=== PATIENT | female | born 1990 | race Caucasian/White ===

== ENCOUNTER 2016-09-29 17:33 | Emergency (ER) | payer OTHER ==
[~2016-09-29] VITALS: Ht 157.5 cm; Wt 99.0 kg
[~2016-09-29 17:33] MED LIST: BIRTH CONTROL PO; ZOFR4TAB3 SL
[2016-09-29 17:50] VITALS: BP 134/82; PULSE 86; RESP 16; TEMP 98.3; O2SAT 99
[2016-09-29] MEDS ORDERED: BIRTH CONTROL PILL (17:54)
[2016-09-29] MEDS ORDERED: birth control (19:00)
--- NOTE | 2016-09-29 19:11 | PD ---
HPI . Sore throat Chief Complaint: ENT Complaint Time Seen by Provider: 19:08 Travel History International Travel<30 days: No Contact w/Intl Traveler<30days: No Traveled to known affect area: No History of Present Illness HPI 26-year-old female with past history significant for recurrent strep throat here with complaints of strep throat again. Patient says she is almost she has strep throat. She is complaining of a sore throat. She admits to seeing white spots in the back of her throat. She denies any fever chills but she has no other symptoms. [facility] Past Medical History Medical History: Denies Significant Hx Hx Anticoagulant Therapy: No Diabetes: No Diminished Hearing: No Headaches: Yes Tetanus Vaccination: Unknown ?: Not Past Surgical History Oral Surgery: Yes (WISDOM TEETH) Social History Alcohol Use: Yes (SOCIAL) Tobacco Use: No Substance Use: No Allergies-Medications (Allergen,Severity, Reaction): Coded Allergies: Aspirin (Verified Allergy, Unknown, TOLD BY MOM, 09/29/16) Reported Meds & Prescriptions Reported Meds & Active Scripts Active Reported [ control] Review of Systems General / Constitutional: No: Fever Eyes: No: Visual changes HENT: Positive: Sore Throat, No: Headaches Cardiovascular: No: Chest Pain or Discomfort Respiratory: No: Shortness of Breath Gastrointestinal: No: Abdominal Pain Genitourinary: No: Dysuria Musculoskeletal: No: Pain Skin: No Rash Neurologic: No: Weakness Psychiatric: No: Depression Endocrine: No: Polydipsia Hematologic/Lymphatic: No: Easy Bruising Physical Exam Narrative GENERAL: AAO x 3, no acute distress, Well-nourished, well-developed patient. SKIN: Warm and dry. No visible rashes or bruising. HEAD: Normocephalic and atraumatic. EYES: No scleral icterus. No injection or drainage. ENT: No nasal drainage noted. Mucous membranes pink. Airway patent. Moderate posterior pharynx erythema, exudates and slight edema. No airway obstruction. NECK: Supple, trachea midline. No JVD. Chain lymphadenopathy. CARDIOVASCULAR: Regular rate and rhythm without murmurs, gallops, or rubs. RESPIRATORY: Breath sounds equal bilaterally. No accessory muscle use. No rhonchi or rales. GASTROINTESTINAL: Abdomen soft, non-tender, nondistended. EXTREMITIES: No cyanosis or edema. BACK: Nontender without obvious deformity. No CVA tenderness. PSYCH: AAO x 3, normal affect. Data Data Last Documented VS Vital Signs Date Time Temp Pulse Resp B/P Pulse Ox O2 Delivery O2 Flow Rate FiO2 09/29/16 17:50 98.3 86 16 134/82 99 MDM Medical Decision Making Medical Screen Exam Complete: Yes Emergency Medical Condition: Yes Medical Record Reviewed: Yes Differential Diagnosis acute pharyngitis, less likely sinusitis, less likely PNA Narrative Course 26-year-old female with past history significant for recurrent strep throat here with complaints of strep throat again. Patient says she is almost she has strep throat. She is complaining of a sore throat. She admits to seeing white spots in the back of her throat. She denies any fever chills but she has no other symptoms. Patient seen and examined. She does appear to have a strep infection. I will go ahead and bypass testing as this is pretty apparent. I will treat with amoxicillin. She has a history of recurrent infection, I recommend follow-up with her primary care provider for ENT referral for removal. Patient verbalized understanding of instructions, questions were answered, and thanked me for their care. I advised them if their condition worsens, please return to the nearest emergency room for further care. Diagnosis Primary Impression: Acute pharyngitis Qualified Code: J02.9 - Acute pharyngitis, unspecified etiology Patient Instructions: General Instructions, Pharyngitis (ED) Additional Instructions: Take medications as prescribed. Try salt water gargles. Do not share utensils, toothbrush, etc. If you develop difficulty breathing, please go to the nearest emergency room. Follow up with her primary care provider. Use ibuprofen and Tylenol as needed for pain and fever. Med/Other Pt SpecificInfo: Prescription(s) given Scripts Ibuprofen 800 Mg [id number] Mg PO TID #21 TAB Prov:Smita Cook 09/29/16 Amoxicillin 500 Mg [id number] Mg PO BID 10 Days Ref 0 Prov:Smita Cook 09/29/16 Disposition: 01 DISCHARGE HOME Condition: Stable Mary Bradley Sep 29, 2016 19:11
[2016-09-29] MEDS ORDERED: AMOX500C PO (19:12)
[2016-09-29] MEDS ORDERED: IBUP800T23 PO (19:12)
== END 2016-09-29 19:15 | disposition home or self-care (01) ==
LOC: PHEFT 17:33
DX: J02.9 Acute pharyngitis, unspecified (principal)
CPT/HCPCS: 99283

== ENCOUNTER 2017-06-12 14:29 | Emergency (ER) | payer OTHER ==
[~2017-06-12] VITALS: Ht 157.5 cm; Wt 104.3 kg
[~2017-06-12 14:29] MED LIST changes: +AMOX500C PO; -BIRTH CONTROL PO; +IBUP1TAB7 PO; -ZOFR4TAB3 SL; +birth control
[2017-06-12 14:46] VITALS: BP 140/82; PULSE 83; RESP 16; TEMP 98.4; O2SAT 99
[2017-06-12] MEDS ORDERED: BACT800T5 PO (15:46)
--- NOTE | 2017-06-12 15:46 | PD ---
HPI Chief Complaint: Skin Problem Time Seen by Provider: 15:27 Travel History International Travel<30 days: No Contact w/Intl Traveler<30days: No Traveled to known affect area: No History of Present Illness HPI 27-year-old female here for evaluation of draining abscess to right thigh 5 days. The area began to drain spontaneously yesterday. She denies fever or chills. She has pain at the site which is throbbing and constant. Symptom severity is moderate. No alleviating factors. PFSH Past Medical History Medical History: Denies Significant Hx Hx Anticoagulant Therapy: No Diabetes: No Diminished Hearing: No Headaches: Yes Tetanus Vaccination: > 5 Years Influenza Vaccination: No ?: Not LMP: 05/16/17 Past Surgical History Oral Surgery: Yes (WISDOM TEETH) Social History Alcohol Use: Yes (SOCIAL) Tobacco Use: No Substance Use: No Allergies-Medications (Allergen,Severity, Reaction): Coded Allergies: aspirin (Unverified Allergy, Unknown, TOLD BY MOM, 06/12/17) Reported Meds & Prescriptions Reported Meds & Active Scripts Active Reported [ control] Review of Systems Except as stated in HPI: all other systems reviewed are Neg General / Constitutional: No: Fever Physical Exam Narrative GENERAL: Alert well-appearing female no acute distress. SKIN: Warm and dry. Right thigh medial aspects there is a less than 1 cm erythematous abscess with central opening small amount of drainage. There is no drainage or fluctuance. HEAD: Normocephalic. EYES: No scleral icterus. No injection or drainage. NECK: Supple, trachea midline. MUSCULOSKELETAL: No cyanosis, or edema. BACK: Nontender without obvious deformity. No CVA tenderness. Data Data Last Documented VS Vital Signs Date Time Temp Pulse Resp B/P (MAP) Pulse Ox O2 Delivery O2 Flow Rate FiO2 06/12/17 14:46 98.4 83 16 140/82 (101) 99 MDM Medical Decision Making Medical Screen Exam Complete: Yes Emergency Medical Condition: Yes Differential Diagnosis Abscess, cellulitis, lymphangitis Narrative Course 27-year-old female here with abscess to the right medial thigh which is draining. She has no fever chills. The area is not indurated. Patient put on Bactrim Diagnosis Primary Impression: Abscess Referrals: Primary Care Physician Additional Instructions: Apply warm compresses to the area. Keep the area covered until draining stops Take antibiotics as prescribed. Scripts Sulfamethoxazole-Trimethoprim (Bactrim DS) 800-160 Mg Tab 1 TAB PO BID for Infection, #20 TAB 0 Refills Prov: Elisabeth Nunez 06/12/17 Disposition: 01 DISCHARGE HOME Condition: Stable Elisabeth Nunze Jun 12, 2017 15:46
== END 2017-06-12 15:52 | disposition home or self-care (01) ==
LOC: PHEFT 14:29
DX: L02.415 Cutaneous abscess of right lower limb (principal); Z72.89 Other problems related to lifestyle
CPT/HCPCS: 99283

== ENCOUNTER 2017-07-21 19:02 | Emergency (ER) | payer OTHER ==
[~2017-07-21] VITALS: Ht 157.5 cm; Wt 103.9 kg
[~2017-07-21 19:02] MED LIST changes: -AMOX500C PO; +BACT800T5 PO; -IBUP1TAB7 PO
[2017-07-21 19:12] VITALS: BP 146/89; PULSE 107; RESP 20; TEMP 99.9; O2SAT 95
[2017-07-21 20:20] VITALS: BP 142/69; PULSE 96; RESP 18; O2SAT 97
--- NOTE | 2017-07-21 20:43 | PD ---
HPI Chief Complaint: Cold / Flu Symptoms Time Seen by Provider: 20:35 Travel History International Travel<30 days: No Contact w/Intl Traveler<30days: No Traveled to known affect area: No History of Present Illness HPI The patient is a 27-year-old female that complains of a cough, nausea, vomiting and diarrhea for 1 day. She denies any shortness of breath. She thinks he probably has a low-grade fever at home. She denies any possibility of . PFSH Past Medical History Hx Anticoagulant Therapy: No Diabetes: No Diminished Hearing: No Headaches: Yes Migraines: Yes Influenza Vaccination: No ?: Not LMP: 07/10/17 Past Surgical History Surgical History: No Previous Surgery Oral Surgery: Yes (WISDOM TEETH) Social History Alcohol Use: Yes (SOCIAL) Tobacco Use: No Substance Use: No Allergies-Medications (Allergen,Severity, Reaction): Coded Allergies: aspirin (Verified Allergy, Unknown, TOLD BY MOM, 07/21/17) Reported Meds & Prescriptions Reported Meds & Active Scripts Active Reported [ control] Review of Systems Except as stated in HPI: all other systems reviewed are Neg Physical Exam Narrative GENERAL: The patient is alert, oriented 3 in no respirator distress. Her vital signs show temperature 99.9 with heart rate of 107 but are otherwise normal. SKIN: Focused skin assessment warm/dry. There is a slight skin rash on the right anterior lower abdominal wall apparently from scratching a pimple. It is about 3 cm in diameter, mild cellulitis. HEAD: Atraumatic. Normocephalic. EYES: Pupils equal and round. No scleral icterus. No injection or drainage. ENT: No nasal bleeding or discharge. Mucous membranes pink and moist. The throat is slightly red without exudate or abscess. NECK: Trachea midline. No JVD. There is no meningismus present. CARDIOVASCULAR: Regular rate and rhythm. No murmur appreciated. RESPIRATORY: No accessory muscle use. Clear to auscultation. Breath sounds equal bilaterally. GASTROINTESTINAL: Abdomen soft, non-tender, nondistended. Hepatic and splenic margins not palpable. No guarding or rebound is present. MUSCULOSKELETAL: No obvious deformities. No clubbing. No cyanosis. No edema. NEUROLOGICAL: Awake and alert. No obvious cranial nerve deficits. Motor grossly within normal limits. Normal speech. PSYCHIATRIC: Appropriate mood and affect; insight and judgment normal. Data Data Last Documented VS Vital Signs Date Time Temp Pulse Resp B/P (MAP) Pulse Ox O2 Delivery O2 Flow Rate FiO2 07/21/17 21:16 88 18 141/80 (100) 97 Room Air 07/21/17 19:12 99.9 Orders Orders Sepsis Workup Initiated (07/21/17 ) Complete Blood Count With Diff (07/21/17 20:44) Comprehensive Metabolic Panel (07/21/17 20:44) Lactic Acid Sepsis Protocol (07/21/17 20:44) Lipase (07/21/17 20:44) Urinalysis - C+S If Indicated (07/21/17 20:44) Blood Culture (07/21/17 20:44) Chest, Pa & Lat (07/21/17 20:44) Ecg Monitoring (07/21/17 20:44) Iv Access Insert/Monitor (07/21/17 20:44) Oximetry (07/21/17 20:44) Oxygen Administration (07/21/17 20:44) Ondansetron Inj (Zofran Inj) (07/21/17 21:00) Sodium Chlor 0.9% 1000 Ml Inj (Ns 1000 M (07/21/17 21:00) Ed Urine Pregnancytest Poc (07/21/17 20:47) Influenzae A/B Antigen (07/21/17 21:00) Labs Laboratory Tests Test 07/21/17 20:45 07/21/17 21:00 White Blood Count 3.8 TH/MM3 Red Blood Count 4.51 MIL/MM3 Hemoglobin 13.4 GM/DL Hematocrit 39.9 % Mean Corpuscular Volume 88.3 FL Mean Corpuscular Hemoglobin 29.7 PG Mean Corpuscular Hemoglobin Concent 33.6 % Red Cell Distribution Width 12.4 % Platelet Count 189 TH/MM3 Mean Platelet Volume 8.9 FL Neutrophils (%) (Auto) 68.4 % Lymphocytes (%) (Auto) 20.0 % Monocytes (%) (Auto) 10.3 % Eosinophils (%) (Auto) 0.6 % Basophils (%) (Auto) 0.7 % Neutrophils # (Auto) 2.6 TH/MM3 Lymphocytes # (Auto) 0.8 TH/MM3 Monocytes # (Auto) 0.4 TH/MM3 Eosinophils # (Auto) 0.0 TH/MM3 Basophils # (Auto) 0.0 TH/MM3 CBC Comment DIFF FINAL Differential Comment Urine Color YELLOW Urine Turbidity HAZY Urine pH 8.5 Urine Specific [place] 1.025 Urine Protein TRACE mg/dL Urine Glucose (UA) NEG mg/dL Urine Ketones NEG mg/dL Urine Occult Blood NEG Urine Nitrite NEG Urine Bilirubin NEG Urine Leukocyte Esterase NEG Urine WBC 3-5 /hpf Urine Squamous Epithelial Cells > 8 /hpf Urine Amorphous Sediment FEW Urine Bacteria FEW /hpf Urine Mucus MOD /lpf Microscopic Urinalysis Comment CATH-CULT NOT IND Blood Urea Nitrogen 10 MG/DL Creatinine 0.76 MG/DL Random Glucose 96 MG/DL Total Protein 7.6 GM/DL Albumin 3.6 GM/DL Calcium Level 8.5 MG/DL Alkaline Phosphatase 68 U/L Aspartate Amino Transf (AST/SGOT) 19 U/L Alanine Aminotransferase (ALT/SGPT) 27 U/L Total Bilirubin 0.1 MG/DL Sodium Level 136 MEQ/L Potassium Level 3.6 MEQ/L Chloride Level 103 MEQ/L Carbon Dioxide Level 24.7 MEQ/L Anion Gap 8 MEQ/L Estimat Glomerular Filtration Rate 92 ML/MIN Lipase 155 U/L Lactic Acid Level 0.7 mmol/L [facility] Medical Decision Making Medical Screen Exam Complete: Yes Emergency Medical Condition: Yes Medical Record Reviewed: Yes Interpretation(s) The CBC is normal except for a slightly low white count of 3800. The influenza A/B antigen is negative for flu a and flu B antigen. The urinalysis shows hazy turbidity, 3-5 white cells and few bacteria but is otherwise normal and culture is not indicated. The complete metabolic profile is normal and the lipase is normal. The chest x-ray is normal. Differential Diagnosis Flu syndrome, viral syndrome, viral gastroenteritis, pneumonia-unlikely, bronchitis, hypoxemia, electrolyte disorder Narrative Course The patient has a viral syndrome. She will get Motrin, Compazine, increase her liquid intake and a 5 day work excuse. She needs to follow-up with her primary care physician this week or early next week. Diagnosis Primary Impression: Viral syndrome Additional Instructions: Rest, increase liquids, 5 day work excuse, Compazine for nausea and Motrin 600 mg 3 times daily when you do for a virus. We have no antibiotic for this. Follow-up with your primary care physician this week or early next week. Med/Other Pt SpecificInfo: Prescription(s) given Scripts Ibuprofen (Ibuprofen) 600 Mg Tab 600 MG PO TID, #30 TAB 0 Refills Prov: Maurisio Little MD 07/21/17 Prochlorperazine Maleate (Prochlorperazine Maleate) 10 Mg Tab 10 MG PO Q6H Y for NAUSEA OR VOMITING, #28 TAB 0 Refills Prov: Maurisio Little MD 07/21/17 Disposition: 01 DISCHARGE HOME Condition: Stable Maurisio Little MD Jul 21, 2017 20:43
[2017-07-21] MEDS ORDERED: SODIUM CHLOR 0.9% 1000 ML INJ 1,000 ML IV SCH (21:00)
[2017-07-21] MEDS ORDERED: ONDANSETRON HCL 4 MG/2 ML VIAL IV ONE (21:00)
[2017-07-21 21:07] LABS: AUTOMATED NEUTROPHIL # 2.6 TH/MM3 (1.8-7.7); BASOPHIL % 0.7 % (0.0-2.0); EOSINOPHIL % 0.6 % (0.0-4.0); HEMATOCRIT 39.9 % (35.0-46.0); HEMOGLOBIN 13.4 GM/DL (11.6-15.3); LYMPHOCYTE # 0.8 TH/MM3 (1.0-4.8); MEAN CELL VOLUME 88.3 FL (80.0-100.0); MEAN CORPUSCULAR HEMOGLOBIN 29.7 PG (27.0-34.0); MEAN CORPUSCULAR HGB CONC 33.6 % (32.0-36.0); MEAN PLATELET VOLUME 8.9 FL (7.0-11.0); MONO % 10.3 % (0.0-8.0); MONOCYTE # 0.4 TH/MM3 (0-0.9); NEUT % 68.4 % (16.0-70.0); PLATELET COUNT 189 TH/MM3 (150-450); RED BLOOD COUNT 4.51 MIL/MM3 (4.00-5.30); RED CELL DISTRIBUTION WIDTH 12.4 % (11.6-17.2); WHITE BLOOD COUNT 3.8 TH/MM3 (4.0-11.0)
[2017-07-21 21:08] LABS: BILIRUBIN, URINE NEG (NEG); BLOOD, URINE NEG (NEG); GLUCOSE,URINE NEG (NEG); KETONE, URINE NEG (NEG); NITRITE,URINE NEG (NEG); PH, URINE 8.5 (5.0-8.5); URINE LEUKOCYTE ESTERASE NEG (NEG)
--- NOTE | 2017-07-21 21:08 | RADRPT ---
EXAM DATE/TIME: 07/21/2017 20:59 [place] COMPARISON: No previous studies available for comparison. INDICATIONS : Nausea, vomiting, diarrhea, cough. MEDICAL HISTORY : None. SURGICAL HISTORY : None. ENCOUNTER: Initial ACUITY: 1 day PAIN SCORE: 0/10 LOCATION: chest FINDINGS: PA and lateral views of the chest demonstrate the lungs to be symmetrically aerated without evidence of mass, infiltrate or effusion. The cardiomediastinal contours are unremarkable. Osseous structure s are intact. CONCLUSION: Normal examination. Dick David Jr., MD on July 21, 2017 at 21:06 Board Certified Radiologist. This report was verified electronically.
[2017-07-21 21:15] VITALS: O2SAT 97
[2017-07-21 21:15] LABS: CHLORIDE 103 MEQ/L (98-107); SODIUM (NA) 136 MEQ/L (136-145)
[2017-07-21 21:16] VITALS: BP_SYST 141; BP_SYST 142; BP_DIAS 80; PULSE 88; PULSE 95; RESP 18; O2SAT 97; O2SAT 98
[2017-07-21 21:17] LABS: MUCUS URINE MOD /lpf (OCC); URINE COLOR YELLOW (YELLW/STRAW)
[2017-07-21 21:18] LABS: AMORPHOUS SEDIMENT, URINE FEW; BACTERIA, URINE FEW /hpf; SQUAMOUS EPITHELIAL CELL URINE > 8 /hpf (0-5)
[2017-07-21 21:19] LABS: CALCIUM 8.5 MG/DL (8.5-10.1)
[2017-07-21 21:20] LABS: ALBUMIN 3.6 GM/DL (3.4-5.0); BICARBONATE 24.7 MEQ/L (21.0-32.0); BLOOD UREA NITROGEN 10 MG/DL (7-18); GLUCOSE,RANDOM 96 MG/DL (74-106); LIPASE 155 U/L (73-393)
[2017-07-21 21:22] LABS: ALT (GPT) 27 U/L (10-53); AST (GOT) 19 U/L (15-37); CREATININE 0.76 MG/DL (0.50-1.00); GLOMERULAR FILTRATION RATE 92 ML/MIN (>89)
[2017-07-21 21:24] LABS: TOTAL BILIRUBIN ADULT 0.1 MG/DL (0.2-1.0); TOTAL PROTEIN 7.6 GM/DL (6.4-8.2)
[2017-07-21 21:25] LABS: ALKALINE PHOSPHATASE 68 U/L (45-117)
[2017-07-21] MEDS ORDERED: IBUP-232 PO (22:26)
[2017-07-21] MEDS ORDERED: PROC10TA PO (22:26)
[2017-07-21 22:51] VITALS: BP 139/88
== END 2017-07-21 22:52 | disposition home or self-care (01) ==
LOC: PHED 19:02
DX: B34.9 Viral infection, unspecified (principal); R05 Cough; R11.2 Nausea with vomiting, unspecified; R19.7 Diarrhea, unspecified; R50.9 Fever, unspecified
CPT/HCPCS: 71046; 80053; 81001; 83605; 83690; 84703; 85025; 87040; 87804; 96361; 96374; 99284; J2405; J7030